=== PATIENT | female | born 1970 | race Caucasian/White ===

== ENCOUNTER 2018-04-26 13:33 | Inpatient (IN) | payer OTHER ==
[~2018-04-26] VITALS: Ht 162.6 cm; Wt 67.1 kg
[2018-04-26] MEDS ORDERED: FERROCHEL PO (14:11)
== END 2018-05-02 14:16 | disposition home or self-care (01) | DRG 743 ==
LOC: OB/GYN 04-28 06:10 → O/R 04-28 06:10 → OB/GYN 04-28 15:40
PROVIDERS: Obstetrics & Gynecology
PROC: 0US20ZZ Reposition Bilateral Ovaries, Open Approach (ICD-10-PCS; 2018-04-28)
PROC: 0UT90ZZ Resection of Uterus, Open Approach (ICD-10-PCS; principal; 2018-04-28 10:00)
DX: D25.1 Intramural leiomyoma of uterus (principal); N84.0 Polyp of corpus uteri; N72 Inflammatory disease of cervix uteri; D51.0 Vitamin B12 deficiency anemia due to intrinsic factor deficiency